=== PATIENT | female | born 1990 | race African-American/Black ===

== ENCOUNTER 2021-11-22 21:29 | Emergency (ER) | payer MEDICAID ==
[~2021-11-22] VITALS: Ht 170.2 cm; Wt 93.0 kg
[2021-11-22 21:50] VITALS: BP 154/79
[2021-11-22] MEDS ORDERED: LIDOCAINE 5% PATCH TOP SCH (22:15)
[2021-11-22] MEDS ORDERED: METHOCARBAMOL 750MG TABLET PO SCH (22:15)
[2021-11-22] MEDS ORDERED: IBUPROFEN 400MG TABLET PO ONE (22:15)
[2021-11-22] MEDS ORDERED: METH-653 MT (22:52)
[2021-11-22] MEDS ORDERED: LIDO1ADH23 TP (22:52)
[2021-11-22] MEDS ORDERED: IBUP-2028 MT (22:52)
== END 2021-11-22 23:26 | disposition home or self-care (01) ==
LOC: ER 21:29
DX: M79.10 Myalgia, unspecified site (principal); S80.12XA Contusion of left lower leg, initial encounter; S13.4XXA Sprain of ligaments of cervical spine, initial encounter; I10 Essential (primary) hypertension; E05.90 Thyrotoxicosis, unspecified without thyrotoxic crisis or storm; V43.52XA Car driver injured in collision with other type car in traffic accident, initial encounter; Y93.89 Activity, other specified; Y92.410 Unspecified street and highway as the place of occurrence of the external cause; Z98.890 Other specified postprocedural states
CPT/HCPCS: 73590; 99283